=== PATIENT | female | born 1980 | race Caucasian/White ===

== ENCOUNTER 2018-01-18 19:15 | Emergency (ER) | payer BC ==
[~2018-01-18] VITALS: Ht 160 cm; Wt 102.2 kg
[~2018-01-18 19:15] MED LIST: ADVIL200 MG PO; ASPIR 8181 M1 PO; EFFEXOR XR150 MG PO; LIDODERM 5% P1 PATCH PO; LIPITOR; LIPITOR40 MG PO; LISINOPRIL2.5 MG PO; METOPROLOL TART25 MG PO; Motrin PO; NITROSTAT0.4 MG SL; NORCO 5/3251 TABLET PO; PLAVIX75 MG PO; PROzac PO; RANEXA500 MG PO; RENAXA; TOPROL XL25 MG PO; TRAZODONE HCL50 MG PO; TYLENOL EXTRA500 MG PO
[2018-01-18] MEDS ORDERED: NORCO 5/3251 TABLET PO (19:34)
[2018-01-18] MEDS ORDERED: EFFEXOR XR150 MG PO (19:35)
[2018-01-18] MEDS ORDERED: GABAPENTIN300 MG PO (19:36)
[2018-01-18] MEDS ORDERED: IMDUR30 MG PO (19:37)
[2018-01-18] MEDS ORDERED: TOPAMAX100 MG PO (19:38)
[2018-01-18] MEDS ORDERED: ZESTRIL2.5 MG PO (19:39)
[2018-01-18] MEDS ORDERED: LAMICTAL150 M1 PO (19:39)
[2018-01-18] MEDS ORDERED: SONATA10 MG PO (19:40)
[2018-01-18] MEDS ORDERED: HYDROXYZINE HCL25 MG PO (19:40)
[2018-01-18] MEDS ORDERED: BENADRYL50 MG PO (19:54)
[2018-01-18] MEDS ORDERED: PREDNISONE10 MG PO (19:54)
[2018-01-18 20:11] VITALS: BP 135/71
== END 2018-01-18 20:12 | disposition home or self-care (01) ==
LOC: EME 19:15
DX: R20.2 Paresthesia of skin (principal); R20.0 Anesthesia of skin; T42.6X5A Adverse effect of other antiepileptic and sedative-hypnotic drugs, initial encounter; K21.9 Gastro-esophageal reflux disease without esophagitis; F32.9 Major depressive disorder, single episode, unspecified; I25.2 Old myocardial infarction; F41.9 Anxiety disorder, unspecified; E28.2 Polycystic ovarian syndrome; Z88.5 Allergy status to narcotic agent; Z88.0 Allergy status to penicillin; Z88.6 Allergy status to analgesic agent; F17.200 Nicotine dependence, unspecified, uncomplicated
CPT/HCPCS: 99281; 99284; J7512